=== PATIENT | male | born 1940 | race Caucasian/White ===

== ENCOUNTER → 2018-10-14 | Outpatient (REF) | payer MEDICARE | LOC: M LAB REF 19:13 | PROVIDERS: ATTEND Physician Assistant | DX: J02.9 Acute pharyngitis, unspecified (principal) ==

== ENCOUNTER → 2019-10-27 | Outpatient (CLI) | payer MEDICARE ==
[~2019-10-27] MED LIST: ACET1TAB55 PO; BAYE325T13 PO; CRES10TA PO; FERR325T18 PO; NAPR-885 PO; PRED20TA PO; TIMO0.5S39 OU; VITAD1000T PO; VITATAB74 PO; XALA0.007 OU
--- NOTE | 2019-10-27 16:41 | REP ---
Clinical: Right shoulder pain. Technique: Internal rotation, external rotation, and Y view of the right shoulder. Findings: Age-related degenerative changes include cortical irregularity and subtle spurring at the acromioclavicular joint as well as cortical irregularity and blunting of the glenoid rim. No acute fracture or dislocation. Subacromial space is normal. No periarticular loose bodies identified. Surrounding soft tissues normal. Impression: Age-related arthritic degenerative changes. Electronically Signed by Nicolas Wynne MD 10/27/2019 04:32 P
--- NOTE | 2019-10-27 16:44 | REP ---
Clinical: Contusion. Technique: Frontal view of the chest with four views of the right hemithorax. Findings: Nondisplaced fractures along the lateral margin of the right 8th - 11th ribs with small right pleural effusion and right basilar atelectasis. No definite pneumothorax identified. Impression: Acute nondisplaced fractures involving the lateral margin of the right 8th - 11th ribs Electronically Signed by Nicolas Wynne MD 10/27/2019 04:35 P
== END ==
LOC: M ADAMS 15:21
PROVIDERS: ATTEND Nurse Practitioner Family
DX: S22.41XA Multiple fractures of ribs, right side, initial encounter for closed fracture (principal); M25.511 Pain in right shoulder; Y92.9 Unspecified place or not applicable; Y93.9 Activity, unspecified; Y99.9 Unspecified external cause status

== ENCOUNTER 2019-10-29 10:48 | Inpatient (IN) | payer MEDICARE ==
[~2019-10-29] VITALS: Ht 180.3 cm; Wt 88.7 kg
[2019-10-29] VITALS (15 sets, daily range): BP systolic 114–145; BP diastolic 69–83
[2019-10-29] MEDS ORDERED: CRES10TA PO (10:56)
[2019-10-29] MEDS ORDERED: VITATAB74 PO (10:56)
[2019-10-29 13:08] LABS: ALBUMIN 3.3 GM/DL (3.2-5.2); ALT/SGPT 17 U/L (12-78); BILIRUBIN,DIRECT 0.2 MG/DL (0.0-0.2); BILIRUBIN,TOTAL 0.7 MG/DL (0.2-1.0); BLOOD UREA NITROGEN 31 MG/DL (7-18); CALCIUM LEVEL 8.9 MG/DL (8.8-10.2); CARBON DIOXIDE LEVEL 27 MEQ/L (21-32); CHLORIDE LEVEL 109 MEQ/L (98-107); CK-MB VALUE MASS < 1.0 NG/ML (<3.6); CPK CREATINE PHOSPHOKINASE 285 U/L (39-308); CREATININE FOR GFR 1.09 MG/DL (0.70-1.30); FREE T4 1.01 NG/DL (0.76-1.46); GLOMERULAR FILTRATION RATE > 60.0 (>42); GLUCOSE, FASTING 117 MG/DL (70-100); LIPASE 73 U/L (73-393); MB/CK RELATIVE INDEX 0.35 (< OR =4); POTASSIUM SERUM 4.1 MEQ/L (3.5-5.1); SODIUM LEVEL 140 MEQ/L (136-145); THYROID STIMULATING HORMONE 0.698 uIU/ML (0.358-3.740); TOTAL PROTEIN 6.6 GM/DL (6.4-8.2); TROPONIN I < 0.02 NG/ML (< 0.10)
[2019-10-29] MEDS ORDERED: ISOVUE-370 76% 100ML VIAL As Ordered ONE (13:17)
[2019-10-29 13:40] LABS: BASO % 0.3 % (0.0-1.0); EOS % 0.2 % (0.0-3.0); HEMATOCRIT 36.2 % (42.0-52.0); HEMOGLOBIN 12.1 g/dl (13.5-17.5); LYMPH # 1.2 10^3/uL (1.5-5.0); LYMPH % 9.4 % (24.0-44.0); MEAN CORPUSCULAR HEMOGLOBIN 32.4 pg (27.0-33.0); MEAN CORPUSCULAR HGB CONC 33.4 g/dl (32.0-36.5); MEAN CORPUSCULAR VOLUME 97.1 fl (80.0-96.0); MONO # 1.5 10^3/uL (0.0-0.8); MONO % 11.7 % (0.0-5.0); NEUTROPHILS # 10.1 10^3/uL (1.5-8.5); NEUTROPHILS % 77.6 % (36.0-66.0); PLATELET COUNT, AUTOMATED 202 10^3/uL (150-450); RED BLOOD COUNT 3.73 10^6/uL (4.30-6.10); WHITE BLOOD COUNT 13.1 10^3/uL (4.0-10.0)
--- NOTE | 2019-10-29 13:50 | REP ---
Clinical: Trauma. Fall. . Comparison: None . Findings: The ventricles, sulci, and cisterns are normal in position and appearance. Aparicio-white differentiation is maintained. No acute intracranial hemorrhage, mass/mass effect, pathology or trauma/injury. No evidence for acute infarction. No extra-axial fluid collection. Calvarium is intact. Paranasal sinuses and mastoid air cells are clear. Impression: Normal noncontrast head CT. No evidence for acute intracranial pathology or trauma/injury. Electronically Signed by Nicolas Wynne MD 10/29/2019 01:42 P
--- NOTE | 2019-10-29 13:57 | REP ---
Clinical: Trauma. Technique: Axial contrast enhanced images from the lung bases to the pubic symphysis using 100 ml Isovue 370 intravenous contrast material with coronal and sagittal re-formations. Findings: Right hemopneumothorax and right 8th - 11th rib fractures noted with small amount of adjacent subcutaneous emphysema. There is no evidence for solid organ injury. Hepatic and bilateral renal cysts are identified. The spleen, pancreas, gallbladder, and bilateral adrenal glands are normal. The enteric system is without obstruction or acute inflammatory process. Pelvis demonstrates normal bladder and age-appropriate prostate/seminal vesicles. No ascites. No free air. No adenopathy. Atherosclerotic changes to the aorta and vasculature noted without aneurysm or dissection. The visualized thoracolumbar spine and pelvis demonstrates age-related osteopenia and degenerative changes without acute injury. Impression: 1. Right rib fractures with right hemothorax. 2. Benign hepatic and bilateral renal cysts. 3. No abdominal pelvic trauma/injury appreciated. Electronically Signed by Nicolas Wynne MD 10/29/2019 01:49 P
--- NOTE | 2019-10-29 13:58 | REP ---
Clinical: Trauma. Technique: Axial contrast enhanced images from the thoracic inlet to the upper abdomen with coronal and sagittal re-formations. Examination followed by CT of the abdomen and pelvis. 100 ml Isovue 370 intravenous contrast material administered without complication. Findings: Posterolateral right 8th - 11th rib fractures are identified with a large hemothorax and associated right lower lobe atelectasis. Subcutaneous emphysema lateral to the rib fractures also appreciated. Mild left basilar atelectasis noted as well. Mediastinum demonstrates relatively normal thoracic aorta, pulmonary vasculature, and heart/pericardium without evidence for mediastinal injury. Impression: 1. Right posterolateral 8th - 11th rib fractures with a large right hemothorax. Electronically Signed by Nicolas Wynne MD 10/29/2019 01:50 P
--- NOTE | 2019-10-29 14:03 | REP ---
CT study of the cervical spine without contrast: History: Injury in a fall. Technique: Helical scanning is acquired and overlapping 2 mm high resolution axial images were generated and reviewed at bone and soft tissue window settings. Coronal and sagittal multiplanar re-formations images are generated. CT findings: There is straightening and slight reversal of the normal cervical lordosis. Degenerative disc changes are noted throughout the cervical spine mild in degree. There is osteoarthritic facet hypertrophy in the mid cervical spine. There is a broad-based central disc protrusion with associated discogenic spurring at C4-5 producing mild central canal stenosis. There is also posterior osteophytic ridging producing central canal stenosis moderate in degree at C5-6. There is evidence of a significant right sided pleural effusion on accompanying gis mapping technician view and on axial CT images opacifying the right lung apex. There is no evidence of cervical spine element fracture. No skull base fracture is seen. Cervical vertebral body heights are preserved. Alignment is normal. Facet joints are normally aligned bilaterally at each cervical level on multiplanar re-formations images. There is no evidence of intraspinal or paraspinal hematoma. No extra vertebral abnormality is seen. Impression: Degenerative disc disease and disc bulging and spurring producing central canal stenosis at C5-6 and C4-5. Osteoarthritic facet changes. There is evidence of significant right pleural effusion in the right lung apex. Otherwise negative CT study of the cervical spine without contrast. No fracture seen. Electronically Signed by Simone Davis MD 10/29/2019 01:54 P
[2019-10-29] MEDS ORDERED: XALA0.007 OU (14:17)
[2019-10-29] MEDS ORDERED: NAPR-885 PO (14:17)
[2019-10-29] MEDS ORDERED: BAYE325T13 PO (14:17)
[2019-10-29] MEDS ORDERED: VITAD1000T PO (14:17)
[2019-10-29] MEDS ORDERED: PRED20TA PO (14:17)
[2019-10-29] MEDS ORDERED: TIMO0.5S39 OU (14:29)
[2019-10-29] MEDS ORDERED: ACETAMINOPHEN TAB 650MG DOSE (2X325MG) PO PRN (14:30)
[2019-10-29] MEDS ORDERED: ONDANSETRON 4MG/2ML VIAL IV PRN (14:30)
[2019-10-29] MEDS ORDERED: PERCOCET 5MG/325MG TAB PO PRN ×2 (14:30)
[2019-10-29] MEDS ORDERED: BISACODYL 10 MG SUPP PR PRN (14:30)
[2019-10-29] MEDS ORDERED: LEVALBUTEROL 1.25 MG/0.5 ML CONCENTRATE NEB NEB PRN (14:30)
[2019-10-29] MEDS ORDERED: MIDAZOLAM INJ 2MG/2ML VIAL (J2250 PER 1MG) As Ordered ONE ×2 (14:50→14:51)
[2019-10-29] MEDS ORDERED: flumazeniL 0.5 MG/5 ML VIAL As Ordered ONE (14:50)
[2019-10-29] MEDS ORDERED: LIDOCAINE 1% MDV 20ML VIAL As Ordered ONE ×2 (14:51→14:53)
[2019-10-29] MEDS ORDERED: LIDOCAINE 1% MDV 20ML VIAL SC ONE (15:00)
[2019-10-29] MEDS: KCL 20MEQ IN D5/NS 1000ML 1,000 ML IV SCH (15:00)
[2019-10-29 15:32] LABS: INR 1.17; PARTIAL THROMBOPLASTIN TIME 24.4 SECONDS (25.0-38.4); PROTHROMBIN TIME 14.6 SECONDS (11.8-14.0)
[2019-10-29] MEDS ORDERED: MIDAZOLAM INJ 2MG/2ML VIAL (J2250 PER 1MG) IV STA ×3 (15:40→15:50)
--- NOTE | 2019-10-29 16:24 | HPEPDOC ---
[facility] Medical History & Physical Date of Admission Oct 29, 2019 Date of Service: Oct 29, 2019 History and Physical CHIEF COMPLAINT: Persistent thoracic back pain HISTORY OF PRESENT ILLNESS: Mr. Adler presents to the [facility] ER with the chief complaints to back and pleuritic chest pain, weakness, sweating, exertional SOB, and lightheadedness following a fall accident that occurred on Sunday (10/24). Per Mr. Adler, he was moving heavy furniture at home when we slipped and fell down a flight of stairs in his home. He immediately felt sharp lower back/flank pain and went to a urgent care facility in [place], [place] the next day (10/25) where he was given Naproxen for pain. On 10/26 he returned to the urgent care due to persistence of his back pain as well as new onset dull R shoulder pain and received a CXR revealing multiple fractured right ribs. This morning he awoke with exacerbated symptoms such as heavy sweating, chills, SOB upon exertion, generalized body weakness, upper abdominal and mid sternal chest pain upon deep breathing, and whole body tremors which prompted him to return to the urgent care where another xray was taken and he was told to come to the ER. He denies hitting his head or losing consciousness in the initial fall. He denies significant SOB, regular cough or sputum production, palpitations, current shoulder pain or weakness. PAST MEDICAL HISTORY: 1.Hypercholesterolemia 2.Recurrent kidney stones 3. Glaucoma PAST SURGICAL HISTORY: 1. Lithotripsy- multiple 2. colonoscopy SOCIAL HISTORY: Marital status: Resides in: [place], [place] for [address] 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 No medical issues. Mother: multiple strokes. Siblings: 2 sisters, hx of HTN and uterine cancer in one. 1 brother - hyperglycemia ALLERGIES: Please see below. Aspirin causes tinnitus as higher doses. REVIEW OF SYSTEMS: CONSTITUTIONAL: Denies significant fatigue, sweating, chills, weakness or poor appetite currently HEENT: Positive for dry, scratchy throat. CARDIOVASCULAR: Denies pain of cardiac profile, palpitations, irregular heart beats RESPIRATORY: Positive for sporadic cough (very painful). Denies current SOB, sputum production, current pleuritic chest pain (following chest tube) GASTROINTESTINAL: Constipation for the last few days that resolved this morning with watery stools. Denies current abdominal pain, bloating, loss of appetite, color change in stools. GENITOURINARY: Negative for anuria, polyuria, change in urine color, dysuria MUSCULOSKELETAL: Denies current muscle weakness, spasticity, or myalgias HOME MEDICATIONS: Please see below. PHYSICAL EXAMINATION: VITAL SIGNS: Temperature 97.8, pulse 70, respiratory rate 18, blood pressure 124/76, pulse oximetry 99% on room air. GENERAL APPEARANCE: Well nourished male laying in bed eating with chest tube in place in no apparent distress. HEENT: Good dentition, no lymphadenopathy, normal conjuntiva, no facial bruising or lesions,EOMI CARDIOVASCULAR: RRR with no murmurs, rubs, gallops LUNGS: Diminished breath sounds throughout R lung but no pronounced rales, rhonchi, or wheezing. Left lung sounds are clear to auscultation ABDOMEN: Mild URQ and ULQ tenderness. Abdomen appears somewhat distended. No appreciable fluid wave or guarding. Bruise noted on URQ of abdomen/flank MUSCULOSKELETAL: 5/5 strength in UE and LE abduction, flexion, extension EXTREMITIES: Bruise on distal medial left leg. No edema noted NEUROLOGICAL: No FND noted. CN II-XII grossly intact PSYCHIATRIC: Appropriate affect SKIN: Bruise to right lower flank and left inner ankle LABORATORY DATA: See below. IMAGING: CXR (10/29/2019): Small right hydropneumothorax persists post chest tube placement. Displaced right posterolateral 9th rib fracture. Abdomen/pelvis CT (10/29/2019): Right rib fractures with right hemothorax. Benign hepatic and bilateral renal cysts. No abdominal pelvic trauma/injury appreciated Cervical Spine CT (10/29/2019): Degenerative disc disease and disc bulging and spurring producing central canal stenosis at C5-6 and C4-5. Osteoarthritic facet changes. There is evidence of significant right pleural effusion in the right lung apex. Otherwise negative CT study of the cervical spine without contrast. No fracture seen. Chest CT (10/29/2019): Right posterolateral 8th - 11th rib fractures with a large right hemothorax. Head CT (10/29/2019): Normal noncontrast head CT. No evidence for acute intracranial pathology or trauma/injury. MICROBIOLOGY: Please see below. ASSESSMENT: This is a 79 year old male with no significant contributory pmhx who presents to the [facility] ER with back/thoracic pain and pleuritic chest pain secondary to a fall which occurred on 10/25/2019 and who was found to have multiple right lower rib fractures from 8th to 11th with a large right sided effusion on initial imaging which was felt to be a hemothorax. PLAN: #Right sided hemothorax - resolving -Thoracostomy tube placed with 1.5L of grossly red fluid drained -Pleural fluid was sent for cytology, cultures and general analysis -Serial CXR ordered -ABG ordered -Pain is well controlled with Acetaminophen, ketorolac, and Percocet PRN #Right ribs 8-11 fractured: -No flail segments noted -Pain well controlled at this point -U/A ordered to ensure no kidney contusion/injury #Leukocytosis with Neutrophil dominance: -No current indication of infection -Possibly due to beginning infection of hemothorax or recent GI upset -Serial CBC w/ diff -Serial BMP #Normocytic anemia: -Hbg 13.1 and will likely decrease he is rehydrated -Serial CBC w/ diff -Will continue to monitor #Hx of HLD: -Continue Rosuvastatin calcium 1- Q2D PO #DVT Prophylaxis: -Heparin 5000 units SC Q12H #Hx of seasonal allergies: -Pt reports using albuterol in the past for seasonal wheezing/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 but denies current/recent symptoms -Start Levalbuterol inhaler Vital Signs Vital Signs Date Time Temp Pulse Resp B/P (MAP) Pulse Ox O2 Delivery O2 Flow Rate FiO2 10/29/19 15:15 69 94 10/29/19 15:01 145/80 (101) 10/29/19 14:45 20 Room Air 10/29/19 14:45 96.5 Laboratory Data Labs 24H Laboratory Tests 2 10/29/19 12:07: Immature Granulocyte % (Auto) 0.8, Neutrophils (%) (Auto) 77.6H, Lymphocytes (%) (Auto) 9.4L, Monocytes (%) (Auto) 11.7H, Eosinophils (%) (Auto) 0.2, Basophils (%) (Auto) 0.3, Neutrophils # (Auto) 10.1H, Lymphocytes # (Auto) 1.2L, Monocytes # (Auto) 1.5H, Eosinophils # (Auto) 0.0, Basophils # (Auto) 0.0, Nucleated Red Blood Cells % (auto) 0.0, Prothrombin Time 14.6H, Prothromb Time International Ratio 1.17, Activated Partial Thromboplast Time 24.4L, Anion Gap 4L, Glomerular Filtration Rate > 60.0, Calcium Level 8.9, Total Bilirubin 0.7, Direct Bilirubin 0.2, Aspartate Amino Transf (AST/SGOT) 15, Alanine Aminotransferase (ALT/SGPT) 17, Alkaline Phosphatase 51, Total Creatine Kinase 285, Creatine Kinase MB < 1.0, Creatine Kinase MB Relative Index 0.35, Troponin I < 0.02, Total Protein 6.6, Albumin 3.3, Albumin/Globulin Ratio 1.0, Lipase 73, Thyroid Stimulating Hormone (TSH) 0.698, Free Thyroxine 1.01 CBC/BMP Laboratory Tests 10/29/19 12:07 Microbiology Microbiology 10/29/19 Respiratory Virus Panel (PCR) ([facility]) - Final, Complete Home Medications Scheduled Aspirin (Aspirin) 325 Mg Tablet, 162.5 MG PO DAILY Cholecalciferol (Vitamin D3) (Vitamin D3) 1,000 Unit Tablet, 2,000 UNITS PO DAILY Latanoprost (Xalatan) 0.005% 2.5ML Drops, 1 DROP OU QHS Prednisone (Prednisone) 20 Mg Tablet, 20 MG PO BID FOR 4 DAYS, STARTED 10/27/19 Rosuvastatin Calcium (Crestor) 10 Mg Tablet, 10 MG PO Q2D Timolol Maleate (Timolol Maleate) 0.5% 5ML Drop.daily, 1 DROP OU BID LAST FILLED 10/2018, PT STATES IS TAKING Scheduled PRN Naproxen (Naproxen) 500 Mg Tablet, 500 MG PO BID PRN for PAIN Allergies Coded Allergies: No Known Drug Allergies (Verified Allergy, Unknown, 10/30/19) oxycodone (Verified Adverse Reaction, Intermediate, 10/30/19) Patient states he became very diaphoretic and felt unwell A-FIB/CHADSVASC A-FIB History Current/History of A-Fib/PAF?: No Current PO Anticoag Therapy: No GME ATTESTATION GME ATTESTATION My faculty preceptor for this patient encounter was physically present during the encounter and was fully available. All aspects of the patient interview, examination, medical decision making process, and medical care plan development were reviewed and approved by the faculty preceptor. The faculty preceptor is aware and concurs with the plan as stated in the body of this note and will attest to such by his/her cosignature. ATTENDING NOTE I personally performed a history and physical examination of the patient and discussed the management with the resident/medical student. I reviewed the resident's note and agree with the documented findings and plan of care. SHEYLA HERNANDEZ OMS-3 Oct 29, 2019 16:24 WILL NOGUEIRA MD Oct 31, 2019 14:31
--- NOTE | 2019-10-29 16:32 | REP ---
Chest x-ray: Portable single view. History: Hemothorax. Comparison chest x-ray 12/1952 a.m. on this date. Findings: Right sided chest tube is seen in place. There is blunting of the right lateral pleural angle indicating small residual hemothorax. There is a small right apical pneumothorax. There is a displaced right posterolateral 9th rib fracture. The aorta somewhat tortuous. Left lung is clear. Monitoring electrodes and oxygen delivery tubing are seen. Impression: Small right hydropneumothorax persists post chest tube placement. Displaced right posterolateral 9th rib fracture. Electronically Signed by Simone aDvis MD 10/29/2019 04:24 P
[2019-10-29 16:49] LABS: ABG BASE EXCESS -1.7 (-2.0-2.0); ABG HCO3 21.9 MEQ/L (22.0-26.0); ABG O2 SATURATION 96.9 % (95.0-99.0); ABG PARTIAL PRESSURE O2 87.9 mmHg (75.0-100.0); ABG STANDARD HCO3 23.1 MEQ/L (22.0-26.0); ABG TOTAL CO2 22.9 MEQ/L (23.0-31.0); ABG pH (ARTERIAL) 7.439 UNITS (7.350-7.450)
[2019-10-29] MEDS: KETOROLAC 30 MG/ML 1ML VIAL IV SCH ×2 (16:52→20:40)
[2019-10-29 17:29] LABS: PH BODY FLUID 7.436 UNITS (NOT ESTABLISHED); SOURCE, BODY FLUID pH PLEURAL
[2019-10-29 17:33] LABS: APPEARANCE, BODY FLUID TURBID (CLEAR); PLEURAL FL COLOR RED (COLORLESS); SOURCE, BODY FLUID PLEURAL
--- NOTE | 2019-10-29 17:46 | CR ---
DATE OF CONSULTATION: 10/29/2019 Patient is seen at the request of Dr. Mei and the hospitalist's service for a pleural effusion with multiple rib fractures. HISTORY OF PRESENT ILLNESS: This past Sunday, three days prior to admission, patient was moving a 10-drawer dresser, when he fell down a flight of stairs of approximately 10 stairs, hitting his right side. He immediately felt pain but did not complain of shortness of breath. He carried on throughout the afternoon and evening and finally sought medical attention at an urgent care. Urgent care at that point did not take an x-ray and treated him with naproxen. He then returned to urgent care the next day because of more pain, and he was then put on prednisone, and a chest x-ray was taken which showed multiple fractured ribs. Today, he comes to the hospital complaining of more and more pain with increasing shortness of breath, and he was found to have a large pleural effusion. He does not complain of cough or sputum production. It surprised me it does hurt him to cough, and he can take deep breaths without an undue amount of pain. He has not had any fever but does complain of chills or sweats over the last 24 hours. He has had some constipation followed by diarrhea last night. There is no dysphagia. He is able to speak in full sentences. PAST MEDICAL ILLNESSES: Hyperlipidemia. Glaucoma. PAST SURGERIES: He has had multiple kidney stone surgeries. ALLERGIES: None. MEDICATIONS AT HOME: - aspirin 325 mg daily - vitamin D3 1000 units daily - Xalatan one drop nightly both eyes - naproxen 500 mg twice a day - prednisone 20 mg twice a day, started 10/27/2019 - Crestor 10 mg every other day - timolol one drop both eyes twice a day EXPOSURES: He has two dogs. No cats or birds. Dogs are Rat Terriers. No exposure to tuberculosis. TRAVEL HISTORY: He sojourns in [place] over the winter and is fixing up his cottage this summer. He has remote travel to the [facility]. No foreign travel. 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 He has been exposed to molds and dust pulling wires. No convincing asbestos exposure. FAMILY HISTORY: Not pertinent to the acute situation. REVIEW OF SYSTEMS: CONSTITUTIONAL: See history of present illness (HPI). EYES: Without diplopia, amaurosis fugax, or prior jaundice. NOSE: Without epistaxis. MOUTH: Has his own teeth. RESPIRATORY: See HPI. CARDIAC: Without prior myocardial infarction, intermittent claudication, peripheral edema, or tachycardia or palpitations. GASTROINTESTINAL (GI): See HPI. Without nausea or vomiting. Has had constipation and diarrhea in the last two days. No hematochezia, hematemesis, or abdominal pain. GENITOURINARY (): Multiple renal stones. Presently without dysuria or hematuria. ENDOCRINE: Without diabetes. Without thyroid disease. NEUROLOGIC: Without paresthesias, paralyses, or prior seizures. PSYCHIATRIC: Without pathological anxieties, depressions, or psychoses. PHYSICAL EXAM: Well-developed, well-nourished white male in no acute distress. Vital signs: Temperature is 98.9, heart rate is 80 in a sinus rhythm, respiratory rate of 20 without use of accessory muscles, who is 95% saturated on room air. His blood pressure is 145/80. EYES: Pupils equal and reactive to light. Extraocular motion intact. Sclerae nonicteric. NOSE: Without deformity. MOUTH: Shows his mucous membranes to be pink and moist. Lips and commissures without lesions. He has his own teeth in good repair. Head is normocephalic. NECK: Is supple. There is no jugular venous distention. No subcutaneous emphysema. Trachea is midline. He has 2+ carotid upstrokes. No bruits. There is no thyromegaly or lymphadenopathy. LUNGS: Show markedly decreased breath sounds on the right side with a dull percussion note all the way to the apex of the right chest. He has E to A egophony. He has normal vesicular sounds on the left. CARDIAC: Exam is without murmurs, clicks, gallops, or rubs. I cannot feel his point of maximum impulse (PMI). S1 and S2 are normal. ABDOMEN: Is soft, nontender. Bowel sounds are positive. There is no hepatomegaly. No costovertebral angle (CVA) tenderness. EXTREMITIES: Show no pretibial edema. No calf tenderness. No differential swelling of the upper extremities. He has a little ecchymosis just above the left ankle. SKIN: Is warm, dry, perfused without cyanosis or mottling including that of the nail beds and knees. NEUROLOGIC: Shows II-XII intact along with gross motor and gross sensation intact. Gait is not tested. PSYCHIATRIC: Shows him to be awake, alert, and oriented times three with appropriate mood and affect and conversational. His white count is 13.8 with a hemoglobin and hematocrit of 12.1 and 36.2 and a platelet count of 202. Differential shows 77% neutrophils, 9% lymphocytes, 11% monocytes. There are no immature forms. No toxic granulations. Chemistries show essentially normal electrolytes with BUN and creatinine of 31 and 1.09 with a glucose of 117 with a calcium 8.9, corresponding albumin of 3.3. AST and ALT are normal. Urinalysis is not done. PT/INR are 14.6 and 1.17, respectively, with a PTT of [address] scan shows the heterogeneous pleural effusion occupying almost all the hemithorax. There is aeration of the right upper lobe. He has rib fractures displaced of 10 and 9 ribs posteriorly. IMPRESSION: 1. Multiple rib fractures, ribs 9 and 10, without a flail segment. 2. Probable hemothorax. 3. Hyperlipidemia. 4. Glaucoma. PLAN AND DISCUSSION: I will immediately place a chest tube. He has a heterogeneous pleural effusion which is no doubt blood, some of which is probably clotted. Even though his blood pressure and heart rate are stable and he is not on beta blockers, I suspect he is going to drop his hemoglobin once this hemithorax is resolved and he is rehydrated. I will obtain a urinalysis to make sure he does not have a renal contusion.
[2019-10-29 17:56] LABS: AMYLASE, BODY FLUID 40 U/L (NOT ESTABLISHED); CHOLESTEROL, BODY FLUID 112 MG/DL (NOT ESTABLISHED); LDH, BODY FLUID 337 U/L (NOT ESTABLISHED); SOURCE, BODY FLUID ALBUMIN PLEURAL; SOURCE, BODY FLUID AMYLASE PLEURAL; SOURCE, BODY FLUID CHOL PLEURAL; SOURCE, BODY FLUID GLUCOSE PLEURAL; SOURCE, BODY FLUID LDH PLEURAL; SOURCE, BODY FLUID TOT PROTEIN PLEURAL; SOURCE, BODY FLUID TRIG PLEURAL; TOTAL PROTEIN, BODY FLUID 5.3 G/DL (NOT ESTABLISHED); TRIGLYCERIDE, BODY FLUID 63 MG/DL (NOT ESTABLISHED)
[2019-10-29] MEDS: LEVALBUTEROL 1.25 MG/0.5 ML CONCENTRATE NEB NEB SCH (19:49)
[2019-10-29] MEDS: DOCUSATE SODIUM 100 MG CAP PO SCH (20:28)
[2019-10-29] MEDS: LATANOPROST 0.005% OPHTH SOLN 2.5 ML OU SCH (20:39)
[2019-10-29] MEDS: HEPARIN SOD (PORCINE) 5000UNITS/ML VIAL (J1644 PER 1000UNITS) SC SCH (20:40)
[2019-10-30] VITALS (7 sets, daily range): BP systolic 120–148; BP diastolic 63–76
[2019-10-30] MEDS: KCL 20MEQ IN D5/NS 1000ML 1,000 ML IV SCH ×3 (01:31→22:14)
[2019-10-30] MEDS: LEVALBUTEROL 1.25 MG/0.5 ML CONCENTRATE NEB NEB SCH ×4 (01:58→20:00)
[2019-10-30 02:09] LABS: APPEARANCE, URINE CLEAR (CLEAR); BACTERIA, URINE AUTO NEGATIVE (NEGATIVE); BILIRUBIN, URINE AUTO NEGATIVE (NEGATIVE); BLOOD, URINE BLOOD NEGATIVE (NEGATIVE); COLOR, URINE YELLOW (YELLOW); GLUCOSE, URINE (UA) AUTO NEGATIVE (NEGATIVE); KETONE, URINE AUTO NEGATIVE (NEGATIVE); LEUKOCYTE ESTERASE, URINE AUTO NEGATIVE (NEGATIVE); MUCUS, URINE LARGE (NEGATIVE); NITRITE, URINE AUTO NEGATIVE (NEGATIVE); PROTEIN, URINE AUTO NEGATIVE (NEGATIVE); RBC, URINE AUTO 3 /HPF (0-3); SQUAMOUS EPITHELIAL CELL UR AU 0 /HPF (0-6); UROBILINOGEN, URINE AUTO 0.2 mg/dL (0.0-2.0); WBC, URINE AUTO 2 /HPF (0-3)
[2019-10-30 02:35] LABS: SPECIFIC GRAVITY URINE AUTO >1.060 (1.002-1.035)
[2019-10-30] MEDS: KETOROLAC 30 MG/ML 1ML VIAL IV SCH ×4 (03:43→20:04)
[2019-10-30 05:37] LABS: ABG BASE EXCESS -1.3 (-2.0-2.0); ABG HCO3 22.8 MEQ/L (22.0-26.0); ABG O2 SATURATION 96.8 % (95.0-99.0); ABG PARTIAL PRESSURE CO2 35.4 mmHg (35.0-45.0); ABG PARTIAL PRESSURE O2 88.4 mmHg (75.0-100.0); ABG STANDARD HCO3 23.4 MEQ/L (22.0-26.0); ABG TOTAL CO2 23.8 MEQ/L (23.0-31.0); ABG pH (ARTERIAL) 7.426 UNITS (7.350-7.450)
[2019-10-30 05:39] LABS: BLOOD UREA NITROGEN 36 MG/DL (7-18); CALCIUM LEVEL 7.7 MG/DL (8.8-10.2); CARBON DIOXIDE LEVEL 28 MEQ/L (21-32); CHLORIDE LEVEL 115 MEQ/L (98-107); CREATININE FOR GFR 1.05 MG/DL (0.70-1.30); GLOMERULAR FILTRATION RATE > 60.0 (>42); GLUCOSE, FASTING 153 MG/DL (70-100); POTASSIUM SERUM 4.3 MEQ/L (3.5-5.1); SODIUM LEVEL 146 MEQ/L (136-145)
--- NOTE | 2019-10-30 06:17 | ECGEPIP ---
[facility] - ED Test Date: 2019-10-29 Pat Name: KEIKO DEGROOT Department: Room: - Gender: Male Collection Agent: OLYA : [id number] Requested By: ABEL Mcnair Order Number: [id number] Reading MD: Carlos Laguna Measurements Intervals [place] Rate: 77 P: 43 TN: 164 QRS: 27 QRSD: 91 T: 27 QT: 355 QTc: 402 Interpretive Statements SINUS RHYTHM INCOMPLETE RIGHT BUNDLE BRANCH BLOCK NO PRIORS FOR COMPARISON Electronically Signed on 10-30-2019 6:17:09 EDT by Carlos Laguna
[2019-10-30 06:56] LABS: BASO % 0.3 % (0.0-1.0); EOS # 0.2 10^3/uL (0.0-0.5); EOS % 2.1 % (0.0-3.0); HEMATOCRIT 26.9 % (42.0-52.0); HEMOGLOBIN 8.9 g/dl (13.5-17.5); LYMPH % 12.7 % (24.0-44.0); MEAN CORPUSCULAR HEMOGLOBIN 32.7 pg (27.0-33.0); MEAN CORPUSCULAR HGB CONC 33.1 g/dl (32.0-36.5); MEAN CORPUSCULAR VOLUME 98.9 fl (80.0-96.0); MONO # 1.2 10^3/uL (0.0-0.8); MONO % 15.3 % (0.0-5.0); NEUTROPHILS # 5.2 10^3/uL (1.5-8.5); NEUTROPHILS % 69.2 % (36.0-66.0); PLATELET COUNT, AUTOMATED 132 10^3/uL (150-450); RED BLOOD COUNT 2.72 10^6/uL (4.30-6.10); WHITE BLOOD COUNT 7.6 10^3/uL (4.0-10.0)
--- NOTE | 2019-10-30 08:35 | REP ---
CHEST X-RAY: Two views. HISTORY: Hemothorax. COMPARISON CHEST X-RAY: October 29, 2019. FINDINGS: A right-sided chest tube remains in place. There is further improvement in the right-sided pleural effusion. There is no evidence of pneumothorax on today's chest x-ray. There is mild plate-like atelectasis in the left base. Displaced right posterior 9th and 10th rib fractures seen and a nondisplaced right 8th rib fracture is visible on this radiograph. Thoracic vertebral body heights are preserved. IMPRESSION: Improved right-sided hemothorax with chest tube in place. Right-sided rib fractures. Plate-like atelectasis left base. Electronically Signed by Simone Davis MD 10/30/2019 09:20 A
--- NOTE | 2019-10-30 10:10 | REP ---
Clinical: Hemothorax. Trauma. Technique: Axial noncontrast images from the thoracic inlet to the upper abdomen with coronal and sagittal re-formations. Comparison: 10/29/2019. Findings: Moderate residual right hemothorax noted. The tip of the chest tube extends to the right lung apex beyond the level of the hemathorax. Associated right lower lobe consolidation with air bronchograms appears slightly more prominent than prior examination. Right rib fractures, small amount of right subcutaneous emphysema, and trace left basilar atelectasis again noted and unchanged. The remainder of the bilateral lung sung are well-aerated and relatively clear. Mediastinum is stable with atherosclerotic changes to the thoracic aorta and coronary arteries again noted. No significant adenopathy. Impression: 1. Moderate residual right hemothorax decreased from prior examination. Tip of the right chest tube extends to the right lung apex beyond the level of the knee pneumothorax. 2. Moderate right lower lobe consolidation, trace left basilar atelectasis, right rib fractures and small amount of right subcutaneous emphysema again noted. Electronically Signed by Nicolas Wynne MD 10/30/2019 10:01 A
[2019-10-30] MEDS: MOM 30ML SUSPENSION UDC PO SCH (10:20)
[2019-10-30] MEDS: HEPARIN SOD (PORCINE) 5000UNITS/ML VIAL (J1644 PER 1000UNITS) SC SCH ×2 (10:21→20:03)
[2019-10-30] MEDS: PANTOPRAZOLE 40MG TAB (PROTONIX) PO SCH (10:22)
[2019-10-30] MEDS: DOCUSATE SODIUM 100 MG CAP PO SCH ×2 (10:23→20:05)
[2019-10-30] MEDS ORDERED: ALTEPLASE 2MG/2ML VIAL XX ONE (12:45)
--- NOTE | 2019-10-30 14:20 | RO ---
DATE OF PROCEDURE: 10/30/2019 PREPROCEDURE DIAGNOSIS: Loculated pleural effusion, most likely clotted blood. POSTPROCEDURE DIAGNOSIS: Loculated pleural effusion, most likely clotted blood. PROCEDURE: tPA pleurolysis. SURGEON: Dr. Israel Walls FINISHING TUNNEL OPERATOR: ANESTHESIA: DESCRIPTION OF PROCEDURE: The patient's chest tubes were disconnected and clamped. Prepped and draped in the usual sterile fashion. 6 mg of tPA and 100 mL of normal saline was infused into the chest. The chest tubes clamped. The patient was turned from side to side to distribute the tPA. The chest tubes will be unclamped in 4 hours. The patient tolerated the procedure well.
--- NOTE | 2019-10-30 14:40 | IPN ---
DATE: 10/30/2019 This is the first hospital day for Mr. Adler. He has had a stable 24 hours and his pain is being fairly well controlled with both Toradol and oral analgesics His vital signs show a maximum temperature (Tmax) of 98.2 with a heart rate that ranges between 81-78 in a sinus rhythm, respiratory rate of 18-20 without the use of accessory muscles, who is 97% saturated on 2 liters nasal cannula and his blood pressure is ranging between 145/72-115/69. His intake and output for the past 24 hours has been recorded as 1000 in and 1640 out for negativity of 640 mL. He has put out 1590 mL from the chest tube yesterday and 105 mL in the last 12 hours. His weight today is 89.4 kg compared to 89.3 kg yesterday. On physical examination, he has coarse rhonchi particularly the right side. Percussion note is full to the diaphragm. Cardiac exam is without murmurs, clicks, gallops, or rubs. I cannot feel his point of maximal impulse (PMI). S1 and S2 are normal. Abdomen is tympanitic and slightly distended. There is no hepatomegaly, no costovertebral angle tenderness. Extremities show no pretibial edema and no calf tenderness. No differential swelling of the upper extremities. Skin is warm, dry, and perfused without cyanosis or mottling, including that of the nail beds and the knees. Neck is supple. There is no jugular venous distention. No subcutaneous emphysema. Trachea is midline. Mouth shows his mucous membranes to be pink and moist. Lips and commissures are without lesions. There is no thrush. Eyes show his pupils to be equal and reactive. Extraocular motions are intact. Sclerae are nonicteric. Neurologic shows II-XII intact along with gross motor and gross sensation intact. Gait is not tested. Psychiatric exam shows him to be awake and alert, oriented times three with appropriate mood and affect, and conversational. His white count today is 7.6, down from 13.1 yesterday. Hemoglobin and hematocrit is 8.9 and 26.9, markedly decreased from 12.1 and 36.2. This was expected secondary to hemodilution and blood loss from his hemothorax. Platelet count is 132 and differential shows 69% neutrophils, 12% lymphocytes, 15% monocytes. There are no immature forms, no toxic granulations. His electrolytes show a marginally high sodium of 146 with a potassium of 4.3. BUN and creatinine are 36 and 1.05, changed from 31 and 1.09 yesterday. Calcium is 7.7 with a glucose of 153. His pleural fluid has come back with a pH of 7.4 with a glucose of 82 and LDH of 337 with a serum LDH of 191. There are 5700 white cells and 2500 red cells. Differential shows 25% mononuclear, 75% neutrophils which closely resembles that of his serum. This looks to be hemorrhagic pleural effusion. Microbiology does not show any organisms and cultures are pending. Pathology is still pending. His chest x-ray today shows some residual opacity in the right lower hemithorax. It also shows the stable opacity in the lateral film looking like a pleural effusion. I therefore obtained a CT scan of his chest. It shows compression atelectasis along with the residual heterogenous fluid consistent with clotted blood. He has multiple liver cysts. IMPRESSION: 1. Multiple rib fractures. 2. Hemothorax. 3. Hyperlipidemia. 4. Glaucoma. PLAN AND DISCUSSION: Since he still has retained fluid, which looks to be clotted blood, I will undertake a tPA pleurolysis. We doing aggressive lung expansion therapy on him. I am gratified that his pain is being fairly well controlled.
[2019-10-30] MEDS: NORCO, ANEXSIA 5/325MG TABLET (HYDROcodone/ACETAMINOPHEN) PO PRN ×2 (16:39→20:05)
--- NOTE | 2019-10-30 16:52 | IPNPDOC ---
Subjective Date Seen The patient was seen on 10/30/19. Subjective Chief Complaint/HPI The patient is sitting upright in the bed when I came to see and evaluate him. He reports that he is feeling fairly well, all things considered. He does continue to have referred pain to the right shoulder, and of course he does have some tenderness at the site of the chest tube insertion, but otherwise reports that his pain is fairly well-controlled at this time. He has not developed any significant shortness of breath, cough. He is tolerating his meals at this time. Constitutional: Denies: Chills, Fever, Night Sweats Pulmonary: Denies: Dyspnea, Cough Gastrointestinal: Denies: Nausea, Vomiting, Abdominal Pain, Diarrhea, Constipation Hematologic: Denies: Bleeding Excessively Psych: Reports: Mood Normal; Denies: Depression, Memory Issues Objective Physical Examination General Exam: Positive: Alert, No Acute Distress Neck Exam: Positive: Supple; Negative: JVD Chest Exam: Positive: Other (lungs sounds are diminished at the right base, and then he developed some crackles approximately midway up the thorax, and then sounds clear to auscultation at the apex. On the left side, he does have some very mild diffuse crackles present at the base, but it also clears at the apex as well. No rhonchi. Chest tube present in the right thorax, it is presently clamped.) Heart Exam: Positive: Rate Normal, Regular Rhythm, Normal S1, Normal S2; Negative: Murmurs, Rubs Abdomen Exam: Positive: Normal bowel sounds, Soft; Negative: Tenderness, Hepatospenomegaly Extremity Exam: Positive: Normal pulses; Negative: Clubbing, Cyanosis, Edema Psych Exam: Positive: Mental status NL, Mood NL, Oriented x 3 Assessment /Plan Problems (1) Hemothorax Status: Acute (2) Fracture, ribs Status: Acute (3) Acute blood loss anemia Status: Acute (4) Leukocytosis Status: Acute Response to Treatment: Improving (5) Hyperlipidemia Status: Chronic Problem Text: Continue home dose of rosuvastatin (6) Seasonal allergies Status: Chronic (7) Hx of wheezing Status: Chronic Problem Text: Supposedly secondary to seasonal allergies, he does not have an official diagnosis for asthma Levealbuterol PRN Plan/VTE VTE Prophylaxis Ordered?: Yes (sequentials) Plan Patient did have significant drop in his hemoglobin from 12.1-8.9 today which is to be expected given his hemothorax, and having just attention to the chest tube. White count dropped from 13.1 to 7.6, and he does not have any signs or symptoms of infection, he is not currently on any antibiotics, therefore is suspected that his initial elevated white count was likely due to stress d emargination. Apparently the CT scan and the blood and the chest tube were indicative of clotted blood, cardiothoracic surgery has elected to do TPA pleurolysis. VS, I&O, 24H, Fishbone Vital Signs/I&O Vital Signs Date Time Temp Pulse Resp B/P (MAP) Pulse Ox O2 Delivery O2 Flow Rate FiO2 10/30/19 12:00 2.0 10/30/19 12:00 98.1 77 18 145/72 (96) 92 Nasal Cannula I&O- Last 24 Hours up to 6 AM 10/30/19 05:59 Intake Total 1800 ml Output Total 1675 ml Balance 125 ml Laboratory Data 24H LABS Laboratory Tests 2 10/30/19 01:53: Urine Color YELLOW, Urine Appearance CLEAR, Urine pH 5.0, Urine Specific Benson >1.060H, Urine Protein NEGATIVE, Urine Glucose (Auto)(UA) NEGATIVE, Urine Ketones (Auto) NEGATIVE, Urine Blood NEGATIVE, Urine Nitrite NEGATIVE, Urine Bilirubin NEGATIVE, Urine Urobilinogen 0.2, Urine Leukocyte Esterase (Auto) NEGA TIVE, Urine WBC (Auto) 2, Urine RBC (Auto) 3, Urine Hyaline Casts (Auto) 0, Urine Bacteria (Auto) NEGATIVE, Urine Squamous Epithelial Cells 0, Urine Mucus (Auto) LARGE, Urine Sperm (Auto) 10/30/19 04:53: Immature Granulocyte % (Auto) 0.4, Neutrophils (%) (Auto) 69.2H, Lymphocytes (%) (Auto) 12.7L, Monocytes (%) (Auto) 15.3H, Eosinophils (%) (Auto) 2.1, Basophils (%) (Auto) 0.3, Neutrophils # (Auto) 5.2, Lymphocytes # (Auto) 1.0L, Monocytes # (Auto) 1.2H, Eosinophils # (Auto) 0.2, Basophils # (Auto) 0.0, Nucleated Red Blood Cells % (auto) 0.0, Anion Gap 3L, Glomerular Filtration Rate > 60.0, Calcium Level 7.7L 10/30/19 05:26: Blood Gas Bicarbonate Standard 23.4, Arterial Blood pH 7.426, Arterial Blood Partial Pressure CO2 35.4, Arterial Blood Partial Pressure O2 88.4, Arterial Blood Total CO2 23.8, Arterial Blood HCO3 22.8, Arterial Blood Base Excess -1.3, Arterial Blood Oxygen Saturation 96.8 CBC/BMP Laboratory Tests 10/30/19 04:53 Microbiology Microbiology 10/29/19 Respiratory Virus Panel (PCR) ([facility]) - Final, Complete 10/29/19 Acid Fast Stain, Received Pending 10/29/19 Mycobacterial Culture, Received Pending 10/29/19 Fungal Smear, Received Pending 10/29/19 Fungal Culture, Received Pending 10/29/19 Gram Stain - Final, Resulted 10/29/19 Body Fluid Culture, Resulted Pending 10/29/19 Anaerobic Culture, Resulted Pending WALDEMAR SHETH DO Oct 30, 2019 16:52
[2019-10-30] MEDS: LATANOPROST 0.005% OPHTH SOLN 2.5 ML OU SCH (20:05)
[2019-10-31] VITALS (7 sets, daily range): BP systolic 116–176; BP diastolic 62–82
[2019-10-31] MEDS: NORCO, ANEXSIA 5/325MG TABLET (HYDROcodone/ACETAMINOPHEN) PO PRN (00:50)
[2019-10-31] MEDS: LEVALBUTEROL 1.25 MG/0.5 ML CONCENTRATE NEB NEB SCH ×4 (01:48→20:00)
[2019-10-31] MEDS: KETOROLAC 30 MG/ML 1ML VIAL IV SCH ×4 (03:37→20:40)
[2019-10-31 06:00] LABS: BASO % 0.4 % (0.0-1.0); EOS # 0.2 10^3/uL (0.0-0.5); EOS % 2.9 % (0.0-3.0); HEMATOCRIT 27.1 % (42.0-52.0); HEMOGLOBIN 8.9 g/dl (13.5-17.5); LYMPH % 13.2 % (24.0-44.0); MEAN CORPUSCULAR HEMOGLOBIN 32.7 pg (27.0-33.0); MEAN CORPUSCULAR HGB CONC 32.8 g/dl (32.0-36.5); MEAN CORPUSCULAR VOLUME 99.6 fl (80.0-96.0); MONO % 12.6 % (0.0-5.0); NEUTROPHILS # 5.5 10^3/uL (1.5-8.5); NEUTROPHILS % 70.1 % (36.0-66.0); PLATELET COUNT, AUTOMATED 110 10^3/uL (150-450); RED BLOOD COUNT 2.72 10^6/uL (4.30-6.10); WHITE BLOOD COUNT 7.8 10^3/uL (4.0-10.0)
[2019-10-31 06:20] LABS: BLOOD UREA NITROGEN 38 MG/DL (7-18); CALCIUM LEVEL 7.9 MG/DL (8.8-10.2); CARBON DIOXIDE LEVEL 27 MEQ/L (21-32); CHLORIDE LEVEL 113 MEQ/L (98-107); CREATININE FOR GFR 1.01 MG/DL (0.70-1.30); GLOMERULAR FILTRATION RATE > 60.0 (>42); GLUCOSE, FASTING 129 MG/DL (70-100); POTASSIUM SERUM 4.8 MEQ/L (3.5-5.1); SODIUM LEVEL 143 MEQ/L (136-145)
--- NOTE | 2019-10-31 08:43 | REP ---
Clinical: Hemothorax. Technique: PA and lateral. Comparison: 10/30/2019 Findings: Chest tube extends to the right apex. A small right apical pneumothorax is identified. Moderate pleural fluid and right lower lobe opacities suggesting atelectasis similar to prior examination. Mediastinum and cardiac silhouette along with left hemithorax appear stable and unremarkable. Right rib fractures again identified. Impression: 1. Right hemopneumothorax again noted. Electronically Signed by Nicolas Wynne MD 10/31/2019 08:36 A
[2019-10-31] MEDS: DOCUSATE SODIUM 100 MG CAP PO SCH ×2 (10:00→20:40)
[2019-10-31] MEDS: PANTOPRAZOLE 40MG TAB (PROTONIX) PO SCH (10:00)
[2019-10-31] MEDS: ROSUVASTATIN 10 MG TAB (CRESTOR) PO SCH (10:00)
[2019-10-31] MEDS: MOM 30ML SUSPENSION UDC PO SCH (10:00)
--- NOTE | 2019-10-31 13:06 | IPN ---
DATE: 10/31/2019 Mr. Adler underwent a tPA pleurolysis yesterday. Chest tube opened and very little came out. I therefore placed him in deep Trendelenburg for 15 minutes. He then had a significant result with 780 mL being drained from the chest tube. Today, his chest x-ray is much improved. Today, however, Mr. Adler states that he is feeling rather weak. He has sort of a depressed mood and affect. His pain is being fairly well controlled at the chest tube insertion site. His vital signs show a maximum temperature (Tmax) of 98.2 with a heart rate that ranges between 77-66 in a sinus rhythm, a respiratory rate of 17-18 without the use of accessory muscles, who is 90-95% saturated on 2 liters nasal cannula and whose blood pressure is ranging between 116/62 to 141/67. His intake and output for the past 24 hours has been recorded as 1680 in and 1175 out for a positivity of 500 mL. He has taken in 1080 mL in by mouth intake. He put out 780 mL overnight in addition to 225 mL all of yesterday for approximately 1000 mL from the chest tube. His weight today is 91.4 kg compared to 89.4 kg yesterday. On physical examination, he has crackles, particularly coarse crackles and rhonchi which do not all clear with coughing in the right hemithorax. Percussion note is full to the diaphragm. Cardiac exam is without murmurs, clicks, gallops, or rubs. I cannot feel his point of maximal impulse (PMI). S1 and S2 are normal. Abdomen is soft and nontender. Bowel sounds are positive. There is no hepatomegaly. No costovertebral angle tenderness. Extremities show no pretibial edema and no calf tenderness. No differential swelling of the upper extremities. Skin is warm, dry, and perfused without cyanosis or mottling, including that of the nail beds and the knees. Neck is supple. There is no jugular venous distention. No subcutaneous emphysema. Trachea is midline. Mouth shows his mucous membranes to be pink and moist. Lips and commissures are without lesions. There is no thrush. Eyes show his pupils to be equal and reactive. Extraocular motions are intact. Sclerae are nonicteric. Neurologic shows II-XII intact along with gross motor and gross sensation intact. Gait is not tested. Psychiatric exam shows him to be awake and alert, oriented times three with a depressed mood and affect. His white count today is 7.8 with a hemoglobin and hematocrit of 8.9 and 27.1, unchanged from yesterday. His platelet count is 110. Differential shows 70% neutrophils, 16% lymphocytes, 12% monocytes. There are no immature forms, no toxic granulations. His electrolytes today are essentially normal with a BUN and creatinine of 38 and 1.1. Calcium is 7.9 with a glucose of 129. There is no growth aerobically or anaerobically from the chest tube output. Pathology is still pending. His chest x-ray is markedly improved. The retained clot seen on chest x-ray and chest CT yesterday now looks to be gone. Costophrenic angles are sharp. Chest tube in good place. I see no infiltrates. IMPRESSION: 1. Multiple rib fractures. 2. Hemothorax. 3. Hyperlipidemia. 4. Glaucoma. 5. Anemia secondary to blood loss and hemodilution. PLAN AND DISCUSSION: I will discontinue his chest tube suction today. I am very gratified with the results of the tPA pleurolysis. If the chest tube output is minimal this afternoon and tomorrow, I may consider removing it. He is rather weakened and he may need acute rehabilitation. He has come up to open up his camp from [place] and he has no one staying with him.
--- NOTE | 2019-10-31 16:20 | IPNPDOC ---
Subjective Date Seen The patient was seen on 10/31/19. Subjective Chief Complaint/HPI Patient continues to do well. It appears that he had a fairly decent output from his chest tube yesterday after TPA pleurolysis. The patient reports that it was quite painful when they were draining the tube in the Trendelenburg position, but otherwise reports that he slept fairly well, and does not have much pain right now. He does not have any other concerns or complaints at this time Objective Physical Examination General Exam: Positive: Alert, Cooperative, No Acute Distress Neck Exam: Positive: Supple; Negative: JVD Chest Exam: Positive: Other (crackles at the bases, otherwise fairly clear to auscultation at the apices.) Heart Exam: Positive: Rate Normal, Regular Rhythm; Negative: Murmurs, Rubs Abdomen Exam: Positive: Normal bowel sounds, Soft; Negative: Tenderness, Hepatospenomegaly Extremity Exam: Positive: Normal pulses; Negative: Clubbing, Cyanosis, Edema Psych Exam: Positive: Mental status NL, Mood NL, Oriented x 3 Assessment /Plan Problems (1) Hemothorax Status: Acute (2) Fracture, ribs Status: Acute (3) Acute blood loss anemia Status: Acute (4) Leukocytosis Status: Acute Response to Treatment: Improving (5) Hyperlipidemia Status: Chronic Problem Text: Continue home dose of rosuvastatin (6) Seasonal allergies Status: Chronic (7) Hx of wheezing Status: Chronic Problem Text: Supposedly secondary to seasonal allergies, he does not have an official diagnosis for asthma Levealbuterol PRN Plan/VTE VTE Prophylaxis Ordered?: Yes (sequentials) Plan Today's chest x-ray shows significant improvement in hemothorax. Chest tube remains in place. Input from cardiothoracic surgery is greatly appreciated. Pain is adequately controlled, no changes in his regimen today. VS, I&O, 24H, Fishbone Vital Signs/I&O Vital Signs Date Time Temp Pulse Resp B/P (MAP) Pulse Ox O2 Delivery O2 Flow Rate FiO2 10/31/19 12:00 97.9 98 18 143/77 (99) 91 Room Air 10/31/19 07:50 2.0 I&O- Last 24 Hours up to 6 AM 10/31/19 06:00 Intake Total 780 ml Output Total 1800 ml Balance -1020 ml Laboratory Data 24H LABS Laboratory Tests 2 10/31/19 05:28: Immature Granulocyte % (Auto) 0.8, Neutrophils (%) (Auto) 70.1H, Lymphocytes (%) (Auto) 13.2L, Monocytes (%) (Auto) 12.6H, Eosinophils (%) (Auto) 2.9, Basophils (%) (Auto) 0.4, Neutrophils # (Auto) 5.5, Lymphocytes # (Auto) 1.0L, Monocytes # (Auto) 1.0H, Eosinophils # (Auto) 0.2, Basophils # (Auto) 0.0, Nucleated Red Blood Cells % (auto) 0.0, Anion Gap 3L, Glomerular Filtration Rate > 60.0, Calcium Level 7.9L CBC/BMP Laboratory Tests 10/31/19 05:28 Microbiology Microbiology 10/29/19 Respiratory Virus Panel (PCR) ([facility]) - Final, Complete 10/29/19 Acid Fast Stain, Received Pending 10/29/19 Mycobacterial Culture, Received Pending 10/29/19 Fungal Smear, Received Pending 10/29/19 Fungal Culture, Received Pending 10/29/19 Gram Stain - Final, Complete 10/29/19 Body Fluid Culture - Final, Complete 10/29/19 Anaerobic Culture - Final, Complete WALDEMAR SHETH DO Oct 31, 2019 16:20
[2019-10-31] MEDS: LATANOPROST 0.005% OPHTH SOLN 2.5 ML OU SCH (20:40)
[2019-11-01] VITALS: BP 167/81
[2019-11-01] MEDS: LEVALBUTEROL 1.25 MG/0.5 ML CONCENTRATE NEB NEB SCH ×4 (01:31→20:00)
[2019-11-01 04:00] VITALS: BP 140/73
[2019-11-01] MEDS: KETOROLAC 30 MG/ML 1ML VIAL IV SCH ×4 (04:04→21:12)
[2019-11-01 06:22] LABS: BASO % 0.2 % (0.0-1.0); EOS # 0.3 10^3/uL (0.0-0.5); EOS % 4.1 % (0.0-3.0); HEMATOCRIT 25.8 % (42.0-52.0); HEMOGLOBIN 8.4 g/dl (13.5-17.5); LYMPH % 12.3 % (24.0-44.0); MEAN CORPUSCULAR HEMOGLOBIN 31.9 pg (27.0-33.0); MEAN CORPUSCULAR HGB CONC 32.6 g/dl (32.0-36.5); MEAN CORPUSCULAR VOLUME 98.1 fl (80.0-96.0); MONO # 0.9 10^3/uL (0.0-0.8); MONO % 10.4 % (0.0-5.0); NEUTROPHILS # 5.9 10^3/uL (1.5-8.5); PLATELET COUNT, AUTOMATED 116 10^3/uL (150-450); RED BLOOD COUNT 2.63 10^6/uL (4.30-6.10); WHITE BLOOD COUNT 8.3 10^3/uL (4.0-10.0)
[2019-11-01 06:49] LABS: BLOOD UREA NITROGEN 39 MG/DL (7-18); CALCIUM LEVEL 7.8 MG/DL (8.8-10.2); CARBON DIOXIDE LEVEL 25 MEQ/L (21-32); CHLORIDE LEVEL 114 MEQ/L (98-107); CREATININE FOR GFR 0.86 MG/DL (0.70-1.30); GLOMERULAR FILTRATION RATE > 60.0 (>42); GLUCOSE, FASTING 118 MG/DL (70-100); POTASSIUM SERUM 4.3 MEQ/L (3.5-5.1); SODIUM LEVEL 142 MEQ/L (136-145)
[2019-11-01 08:00] VITALS: BP 138/66
[2019-11-01] MEDS: MOM 30ML SUSPENSION UDC PO SCH (08:09)
[2019-11-01] MEDS: PANTOPRAZOLE 40MG TAB (PROTONIX) PO SCH (08:09)
[2019-11-01] MEDS: DOCUSATE SODIUM 100 MG CAP PO SCH ×2 (08:09→21:00)
--- NOTE | 2019-11-01 08:19 | REP ---
Clinical: Followup hemothorax. Technique: PA and lateral. Comparison: 10/31/2019, 10/30/2019. Findings: Chest tube extending to the right apex is unchanged in position. Small right apical pneumothorax and right basilar pleuroparenchymal changes suggesting small residual pneumothorax and atelectasis again noted and possibly minimally improved. No new acute process appreciated. Impression: 1. Continued evidence for small right apical pneumothorax. 2. Right basilar pleuroparenchymal changes may be minimally improved. Electronically Signed by Nicolas Wynne MD 11/01/2019 08:10 A
--- NOTE | 2019-11-01 11:13 | IPN ---
DATE OF SERVICE: 11/01/2019 Mr. Adler is feeling much better today. He did not eat very much yesterday. Eating better today. His vital signs show a maximum temperature (Tmax) of 98.7 with a heart rate that ranges between 86 and 92 in a sinus rhythm, respiratory rate of 18-17 without the use of accessory muscles, who is 93% to 94% saturated on 2 liters nasal cannula, and whose blood pressure is ranging between 176/82 to 140/74. His intake and output over the past 24 hours has been recorded as 120 in and 1880 out for a negativity of 1760 mL. He has put 955 mL out of the chest tube yesterday. My suspicion is that the intake and output (I and O) are incorrect. He has put out 165 mL in the last 12 hours. His weight is pending today. On physical examination, his lungs show some rhonchi in the right lower hemithorax. Percussion note is full to the diaphragm. Cardiac examination is without murmurs, clicks, gallops, or rubs. I cannot feel his point of maximal impulse (PMI). S1 and S2 are normal. Abdomen is soft and nontender. Bowel sounds are positive. He is tympanitic and fully extended. Extremities show no pretibial edema, no calf tenderness, no differential swelling of the upper extremities. Skin is warm, dry, and perfused without cyanosis or mottling, including that of the nail beds and the knees. Neck is supple. There is no jugular venous distention. No subcutaneous emphysema. Trachea is midline. Mouth shows his mucous membranes to be pink and moist. Lips and commissures are without lesions. There is no thrush. Eyes show his pupils to be equal and reactive. Extraocular motions are intact. Sclerae anicteric. Neurologic shows II-XII intact along with gross motor and gross sensation intact. Gait is not tested. Psychiatric shows him to be awake and alert, oriented times three with appropriate mood and affect and conversational. His white count today is 8.3 with a hemoglobin and hematocrit of 8.4 and 25.8 and a platelet count of 116. Differential shows 72% neutrophils, 12% lymphocytes, 10% monocytes. There are no immature forms, no toxic granulations. His electrolytes today are essentially normal with a BUN and creatinine of 39 and 0.86, a glucose of 118, and a calcium of 7.8. His chest x-ray shows the lung fully expanded to the chest wall. The remaining pleural effusion and retained clots are gone. I see no infiltrates. IMPRESSION: 1. Multiple rib fractures. 2. Hemothorax. 3. Hyperlipidemia. 4. Glaucoma. 5. Anemia secondary to blood loss and hemodilution. PLAN AND DISCUSSION: I will remove his chest tubes today. If all goes according to plan, hopefully we can send him home tomorrow so long as he is functional. I have asked physical therapy to work with him for ambulation and strengthening.
[2019-11-01 11:40] VITALS: BP 144/68
[2019-11-01] MEDS: FERROUS SULFATE 325MG TAB PO SCH ×2 (12:46→21:08)
[2019-11-01 15:43] VITALS: BP 166/74
--- NOTE | 2019-11-01 17:47 | IPNPDOC ---
Subjective Date Seen The patient was seen on 11/01/19. Subjective Chief Complaint/HPI He reports that overnight he did have some generalized malaise, and this morning he feels somewhat tired, but he does not have any specific complaint. He denies nausea, vomiting, diarrhea, fever, and the remainder of the review of systems is negative. The drainage from his chest tube seems to have slowed down. His pain seems to be well controlled. Objective Physical Examination General Exam: Positive: Alert, No Acute Distress Neck Exam: Positive: Supple; Negative: JVD Chest Exam: Positive: Rales (at the bases bilaterally), Other (chest tube present in right hemithorax) Heart Exam: Positive: Rate Normal, Regular Rhythm; Negative: Murmurs, Rubs Abdomen Exam: Positive: Normal bowel sounds, Soft; Negative: Tenderness, Hepatospenomegaly Extremity Exam: Positive: Normal pulses; Negative: Clubbing, Cyanosis, Edema Assessment /Plan Problems (1) Hemothorax Status: Acute (2) Fracture, ribs Status: Acute (3) Acute blood loss anemia Status: Acute (4) Leukocytosis Status: Acute Response to Treatment: Improving (5) Hyperlipidemia Status: Chronic Problem Text: Continue home dose of rosuvastatin (6) Seasonal allergies Status: Chronic (7) Hx of wheezing Status: Chronic Response to Treatment: Improving Problem Text: Supposedly secondary to seasonal allergies, he does not have an official diagnosis for asthma Levealbuterol PRN Plan/VTE VTE Prophylaxis Ordered?: Yes (sequentials) Plan It sounds as though cardiothoracic surgery is planning on removing his chest tube today. If he does well through the night, I would anticipate discharge tomorrow. VS, I&O, 24H, [facility] Vital Signs/I&O Vital Signs Date Time Temp Pulse Resp B/P (MAP) Pulse Ox O2 Delivery O2 Flow Rate FiO2 11/01/19 15:43 98.0 102 18 166/74 (104) 92 Nasal Cannula 2.0 I&O- Last 24 Hours up to 6 AM 11/01/19 06:00 Intake Total 120 ml Output Total 1435 ml Balance -1315 ml Laboratory Data 24H LABS Laboratory Tests 2 11/01/19 05:53: Immature Granulocyte % (Auto) 1.0, Neutrophils (%) (Auto) 72.0H, Lymphocytes (%) (Auto) 12.3L, Monocytes (%) (Auto) 10.4H, Eosinophils (%) (Auto) 4.1H, Basophils (%) (Auto) 0.2, Neutrophils # (Auto) 5.9, Lymphocytes # (Auto) 1.0L, Monocytes # (Auto) 0.9H, Eosinophils # (Auto) 0.3, Basophils # (Auto) 0.0, Nucleated Red Blood Cells % (auto) 0.0, Anion Gap 3L, Glomerular Filtration Rate > 60.0, Calcium Level 7.8L CBC/BMP Laboratory Tests 10/31/19 23:18 11/01/19 05:53 Microbiology Microbiology 10/29/19 Respiratory Virus Panel (PCR) ([facility]) - Final, Complete 10/29/19 Acid Fast Stain, Received Pending 10/29/19 Mycobacterial Culture, Received Pending 10/29/19 Fungal Smear, Received Pending 10/29/19 Fungal Culture, Received Pending 10/29/19 Gram Stain - Final, Complete 10/29/19 Body Fluid Culture - Final, Complete 10/29/19 Anaerobic Culture - Final, Complete WALDEMAR SHETH DO Nov 01, 2019 17:47
[2019-11-01 20:00] VITALS: BP 149/70
[2019-11-01] MEDS: LATANOPROST 0.005% OPHTH SOLN 2.5 ML OU SCH (21:08)
[2019-11-02] VITALS (7 sets, daily range): BP systolic 138–157; BP diastolic 64–82
[2019-11-02] MEDS: LEVALBUTEROL 1.25 MG/0.5 ML CONCENTRATE NEB NEB SCH ×4 (01:32→20:00)
[2019-11-02] MEDS: KETOROLAC 30 MG/ML 1ML VIAL IV SCH ×4 (03:38→20:48)
[2019-11-02 06:05] LABS: BASO % 0.1 % (0.0-1.0); EOS # 0.3 10^3/uL (0.0-0.5); EOS % 3.9 % (0.0-3.0); HEMATOCRIT 24.3 % (42.0-52.0); HEMOGLOBIN 7.9 g/dl (13.5-17.5); LYMPH % 13.9 % (24.0-44.0); MEAN CORPUSCULAR HEMOGLOBIN 31.7 pg (27.0-33.0); MEAN CORPUSCULAR HGB CONC 32.5 g/dl (32.0-36.5); MEAN CORPUSCULAR VOLUME 97.6 fl (80.0-96.0); MONO # 0.8 10^3/uL (0.0-0.8); MONO % 11.3 % (0.0-5.0); NEUTROPHILS % 69.3 % (36.0-66.0); PLATELET COUNT, AUTOMATED 130 10^3/uL (150-450); RED BLOOD COUNT 2.49 10^6/uL (4.30-6.10); WHITE BLOOD COUNT 7.3 10^3/uL (4.0-10.0)
[2019-11-02 06:26] LABS: BLOOD UREA NITROGEN 34 MG/DL (7-18); CALCIUM LEVEL 7.4 MG/DL (8.8-10.2); CARBON DIOXIDE LEVEL 26 MEQ/L (21-32); CHLORIDE LEVEL 113 MEQ/L (98-107); CREATININE FOR GFR 0.83 MG/DL (0.70-1.30); GLOMERULAR FILTRATION RATE > 60.0 (>42); GLUCOSE, FASTING 120 MG/DL (70-100); POTASSIUM SERUM 4.3 MEQ/L (3.5-5.1); SODIUM LEVEL 141 MEQ/L (136-145)
--- NOTE | 2019-11-02 09:02 | REP ---
Clinical: Hemothorax. Technique: PA and lateral. Comparison: 11/01/2019. Findings: Previously noted right chest tube has been removed. Right apical pneumothorax is decreased. Moderate presumed hemorrhagic pleural fluid at the right base may be slightly increased from prior examination. Impression: 1. Chest tube removed with decreased right apical pneumothorax. 2. Pleural fluid overlying the right base slightly increased from prior exam. Electronically Signed by Nicolas Wynne MD 11/02/2019 08:53 A
[2019-11-02] MEDS ORDERED: FUROSEMIDE 40MG/4ML VIAL (J1940) IV ONE (10:00)
[2019-11-02] MEDS: PANTOPRAZOLE 40MG TAB (PROTONIX) PO SCH (10:08)
[2019-11-02] MEDS: MOM 30ML SUSPENSION UDC PO SCH (10:09)
[2019-11-02] MEDS: ROSUVASTATIN 10 MG TAB (CRESTOR) PO SCH (10:09)
[2019-11-02] MEDS: DOCUSATE SODIUM 100 MG CAP PO SCH (10:09)
[2019-11-02] MEDS: FERROUS SULFATE 325MG TAB PO SCH ×2 (10:09→20:47)
[2019-11-02] MEDS: SIMETHICONE 80 MG CHEW TAB PO PRN ×2 (10:13→20:47)
--- NOTE | 2019-11-02 10:16 | RO ---
DATE OF PROCEDURE: 10/29/2019 PREPROCEDURE DIAGNOSES: Multiple fractured ribs, hemothorax. POSTPROCEDURE DIAGNOSES: Multiple fractured ribs, hemothorax. PROCEDURE: Insertion of a right posterolateral chest tube. SURGEON: Israel Walls MD WINDOW CASER: ANESTHESIA: DESCRIPTION OF PROCEDURE: Under satisfactory moderate sedation achieved with 4 mg of Versed, the patient was prepped and draped in the usual sterile fashion. Incision site at approximately the 6th intercostal space was infiltrated with 1% lidocaine down to the pleura. Incision was made, and a tunnel was created in the chest. A #24 chest tube was placed. Because of his obesity, placement was a bit more challenging than usual in that the overlying tissue kept collapsing, and trying to find the tract was difficult. Nonetheless, after about five dilations, the chest tube was placed without difficulty. It was secured to the chest wall with #2 Tevdek suture. 1400 mL of what looked to be pure blood was eluded from the chest. This was sent for the requisite chemistries, cytologies, bacteriologies, and hematologies. The patient tolerated the procedure well, and a chest x-ray is pending.
--- NOTE | 2019-11-02 12:44 | IPN ---
DATE OF SERVICE: 11/02/2019 Mr. Adler is feeling fairly well today but still a bit weak. His intake and output (I and O) have not been collected; and, therefore, I do not know what his output has been. Nonetheless, his weight is up. His chest x-ray shows some reaccumulation of fluid; and, therefore, I am going to diurese him. His vital signs show a maximum temperature (Tmax) of 99.1 with a heart rate that ranges between 79 and 102 in a sinus rhythm. He did appear to have one episode of supraventricular tachycardia (SVT) yesterday. Respiratory rate is 18-16 without the use of accessory muscles, and he is 96% to 94% saturated on 2 liters nasal cannula. His blood pressure is ranging between 142/68 to 166/74. His intake and output shows six voids and only 51 mL of urine. He has taken in 1700 mL in by mouth. He weighs 91.7 kg today compared to 90.6 kg yesterday. On physical examination, he still has very coarse rhonchi in the right lower base. Percussion note is full to the diaphragm. Ecchymosis over his right lower inferior chest consistent with his rib fractures. Cardiac examination is without murmurs, clicks, gallops, or rubs. I cannot feel his point of maximal impulse (PMI). S1 and S2 are normal. Abdomen is soft and nontender. Bowel sounds are positive. There is no hepatomegaly, no costovertebral angle (CVA) tenderness. Extremities show no pretibial edema, no calf tenderness, no differential swelling of the upper extremities. Skin is warm, dry, and perfused without cyanosis or mottling, including that of the nail beds and the knees. Neck is supple. There is no jugular venous distention. No subcutaneous emphysema. Trachea is midline. Mouth shows his mucous membranes to be pink and moist. Lips and commissures are without lesions. There is no thrush. Eyes show his pupils to be equal and reactive. Extraocular motions are intact. Sclerae anicteric. Neurologic shows II-XII intact along with gross motor and gross sensation intact. Gait is not tested. Psychiatric shows him to be awake and alert, oriented times three with appropriate mood and affect and conversational. His white count today is 7.3 with a hemoglobin and hematocrit of 7.9 and 24.3 which I suspect is secondary to hemodilution but could be additional blood loss. Platelet count is 130. Differential shows 69% neutrophils, 15% lymphocytes, 11% monocytes. There are no immature forms, no toxic granulations. His electrolytes are essentially normal with a BUN and creatinine of 34 and 0.83, a glucose of 120, and a calcium of 7.4. Pathology is still pending. His chest x-ray as noted in the introduction shows some reaccumulation and blunting of the right costophrenic angle. There is no subcutaneous emphysema, and his lung is fully expanded to the chest wall. IMPRESSION: 1. Multiple rib fractures, right side. 2. Hemothorax. 3. Hyperlipidemia. 4. Glaucoma. 5. Anemia associated with blood loss and hemodilution. PLAN AND DISCUSSION: I removed his chest tube yesterday. I was hoping we could send him home today. However, he has a little bit of blunting of the right costophrenic angle. I am hoping this is secondary to an I and O imbalance. I am, therefore, going to diurese him with 40 mg of Lasix. He still needs a little bit more ambulation and rehabilitation before he goes home to be independent.
--- NOTE | 2019-11-02 13:19 | IPNPDOC ---
Subjective Date Seen The patient was seen on 11/02/19. Subjective Chief Complaint/HPI The patient reports that he is feeling a little more tired today than it was yesterday. He has started to have some loose stools as well. He has not had any fevers, no antibiotics have been administered during this hospitalization, and they are not entirely liquid, just loose stools. Otherwise, his pain appears to be well controlled. He did require some oxygen overnight, however he is saturating well today on room air Constitutional: Denies: Chills, Fever, Night Sweats Pulmonary: Denies: Dyspnea, Cough Gastrointestinal: Reports: Diarrhea; Denies: Nausea, Vomiting, Abdominal Pain, Constipation Objective Physical Examination General Exam: Positive: Alert, No Acute Distress Neck Exam: Positive: Supple; Negative: JVD Chest Exam: Positive: Rales (minimal at the bases), Diminished (diminished at the right base, I feel as though perhaps a small reaccumulation of fluid has occurred since removal of his chest tube), Other Heart Exam: Positive: Rate Normal, Regular Rhythm, Normal S1, Normal S2; Negative: Murmurs, Rubs Abdomen Exam: Positive: Normal bowel sounds, Soft; Negative: Tenderness, Hepatospenomegaly Extremity Exam: Positive: Normal pulses; Negative: Clubbing, Cyanosis, Edema Psych Exam: Positive: Mental status NL, Mood NL, Oriented x 3 Assessment /Plan Problems (1) Hemothorax Status: Acute (2) Fracture, ribs Status: Acute (3) Acute blood loss anemia Status: Acute (4) Leukocytosis Status: Acute Response to Treatment: Improving (5) Hyperlipidemia Status: Chronic Problem Text: Continue home dose of rosuvastatin (6) Seasonal allergies Status: Chronic (7) Hx of wheezing Status: Chronic Response to Treatment: Improving Problem Text: Supposedly secondary to seasonal allergies, he does not have an official diagnosis for asthma Levealbuterol PRN (8) Diarrhea Status: Acute Plan/VTE VTE Prophylaxis Ordered?: Yes (sequentials) Plan H&H did drop slightly last night, the patient still feel a little weak today, he has not fully weaned off of the oxygen yet. I think that it would be prudent to keep in the hospital at least one more night. Regarding his diarrhea, we will stop his Colace (which he has been refusing anyway), and started him on Imodium. Unlikely infectious given lack of fever, white count, has not received antibiotics, and that it is partially formed. VS, I&O, 24H, Fishbone Vital Signs/I&O Vital Signs Date Time Temp Pulse Resp B/P (MAP) Pulse Ox O2 Delivery O2 Flow Rate FiO2 11/02/19 12:00 98.2 86 18 142/72 (95) 92 Nasal Cannula 2.0 I&O- Last 24 Hours up to 6 AM 11/02/19 06:00 Intake Total 2000 ml Output Total 1 ml Balance 1999 ml Laboratory Data 24H LABS Laboratory Tests 2 11/02/19 05:28: Immature Granulocyte % (Auto) 1.5, Neutrophils (%) (Auto) 69.3H, Lymphocytes (%) (Auto) 13.9L, Monocytes (%) (Auto) 11.3H, Eosinophils (%) (Auto) 3.9H, Basophils (%) (Auto) 0.1, Neutrophils # (Auto) 5.0, Lymphocytes # (Auto) 1.0L, Monocytes # (Auto) 0.8, Eosinophils # (Auto) 0.3, Basophils # (Auto) 0.0, Nucleated Red B lood Cells % (auto) 0.0, Anion Gap 2L, Glomerular Filtration Rate > 60.0, Calcium Level 7.4L CBC/BMP Laboratory Tests 11/02/19 05:28 Microbiology Microbiology 10/29/19 Respiratory Virus Panel (PCR) ([facility]) - Final, Complete 10/29/19 Acid Fast Stain, Received Pending 10/29/19 Mycobacterial Culture, Received Pending 10/29/19 Fungal Smear, Received Pending 10/29/19 Fungal Culture, Received Pending 10/29/19 Gram Stain - Final, Complete 10/29/19 Body Fluid Culture - Final, Complete 10/29/19 Anaerobic Culture - Final, Complete WALDEMAR SHETH DO Nov 02, 2019 13:19
[2019-11-02] MEDS: LOPERAMIDE 2 MG CAPLET PO PRN ×2 (14:38→20:47)
[2019-11-02] MEDS: LATANOPROST 0.005% OPHTH SOLN 2.5 ML OU SCH (20:48)
[2019-11-03] MEDS: LEVALBUTEROL 1.25 MG/0.5 ML CONCENTRATE NEB NEB SCH ×3 (02:00→13:39)
[2019-11-03] MEDS: KETOROLAC 30 MG/ML 1ML VIAL IV SCH ×3 (03:00→08:19)
[2019-11-03 04:00] VITALS: BP 148/75
[2019-11-03 05:25] LABS: BASO % 0.3 % (0.0-1.0); EOS # 0.3 10^3/uL (0.0-0.5); EOS % 3.4 % (0.0-3.0); HEMATOCRIT 24.9 % (42.0-52.0); HEMOGLOBIN 8.1 g/dl (13.5-17.5); LYMPH # 1.1 10^3/uL (1.5-5.0); LYMPH % 14.9 % (24.0-44.0); MEAN CORPUSCULAR HEMOGLOBIN 31.6 pg (27.0-33.0); MEAN CORPUSCULAR HGB CONC 32.5 g/dl (32.0-36.5); MEAN CORPUSCULAR VOLUME 97.3 fl (80.0-96.0); MONO # 0.8 10^3/uL (0.0-0.8); MONO % 11.4 % (0.0-5.0); NEUTROPHILS % 68.2 % (36.0-66.0); PLATELET COUNT, AUTOMATED 153 10^3/uL (150-450); RED BLOOD COUNT 2.56 10^6/uL (4.30-6.10); WHITE BLOOD COUNT 7.4 10^3/uL (4.0-10.0)
[2019-11-03 05:44] LABS: BLOOD UREA NITROGEN 34 MG/DL (7-18); CALCIUM LEVEL 7.5 MG/DL (8.8-10.2); CARBON DIOXIDE LEVEL 27 MEQ/L (21-32); CHLORIDE LEVEL 112 MEQ/L (98-107); CREATININE FOR GFR 0.95 MG/DL (0.70-1.30); GLOMERULAR FILTRATION RATE > 60.0 (>42); GLUCOSE, FASTING 119 MG/DL (70-100); POTASSIUM SERUM 4.4 MEQ/L (3.5-5.1); SODIUM LEVEL 145 MEQ/L (136-145)
[2019-11-03] MEDS: SIMETHICONE 80 MG CHEW TAB PO PRN (06:06)
[2019-11-03 08:00] VITALS: BP 140/80
[2019-11-03] MEDS: FERROUS SULFATE 325MG TAB PO SCH (08:17)
[2019-11-03] MEDS: LOPERAMIDE 2 MG CAPLET PO PRN (08:18)
[2019-11-03] MEDS: MOM 30ML SUSPENSION UDC PO SCH (08:18)
[2019-11-03] MEDS: PANTOPRAZOLE 40MG TAB (PROTONIX) PO SCH (08:18)
--- NOTE | 2019-11-03 10:19 | REP ---
REASON: Followup. COMPARISON: Multiple, the latest 11/02/2019. Right-sided hydropneumothorax status quo with only a minimal pneumo component. No new abnormal opacities have developed. No change in the cardiomediastinal silhouette. No change in the osseous structures. IMPRESSION: No change. Electronically Signed by Suresh Cosby DO 11/03/2019 01:22 P
[2019-11-03 12:00] VITALS: BP 144/73
[2019-11-03] MEDS ORDERED: ACET1TAB55 PO (14:33)
[2019-11-03] MEDS ORDERED: FERR325T18 PO (14:33)
== END 2019-11-03 15:54 | disposition home health service (06) | DRG 200 ==
LOC: M ED 10:48 → M PCU 14:28 → ENRESERV 14:49
PROVIDERS: ADMIT Thoracic Surgery (Cardiothoracic Vascular Surgery); ATTEND Neuromusculoskeletal Medicine & OMM
PROC: 0W9930Z Drainage of Right Pleural Cavity with Drainage Device, Percutaneous Approach (ICD-10-PCS; 2019-10-29)
PROC: 0W9930Z Drainage of Right Pleural Cavity with Drainage Device, Percutaneous Approach (ICD-10-PCS; principal; 2019-10-30)
DX: S27.1XXA Traumatic hemothorax, initial encounter (principal); D62 Acute posthemorrhagic anemia; S22.41XA Multiple fractures of ribs, right side, initial encounter for closed fracture; Z79.82 Long term (current) use of aspirin; Z79.899 Other long term (current) drug therapy; Z88.5 Allergy status to narcotic agent; W10.9XXA Fall (on) (from) unspecified stairs and steps, initial encounter; Y92.009 Unspecified place in unspecified non-institutional (private) residence as the place of occurrence of the external cause; H40.9 Unspecified glaucoma; E78.5 Hyperlipidemia, unspecified; D72.829 Elevated white blood cell count, unspecified

== ENCOUNTER → 2019-10-29 | Outpatient (CLI) | payer MEDICARE ==
--- NOTE | 2019-10-29 10:32 | REP ---
Clinical: Contusion with rib fractures. Technique: PA and lateral. Comparison: 10/27/2019. Findings: Current examination now demonstrates a moderate hydropneumothorax with right lower lobe consolidation / opacity. Known right rib fractures again identified. Impression: Moderate right hydropneumothorax and right lower lobe opacities have developed. Electronically Signed by Nicolas Wynne MD 10/29/2019 10:24 A
--- NOTE | 2019-10-29 10:34 | REP ---
Clinical: Generalized abdominal pain. Technique: Supine and upright views of the abdomen and pelvis. Findings: Right rib fractures with right lower lobe consolidation and effusion are suggested on abdominal radiograph. The bowel gas pattern demonstrates dilated loops of bowel and fecal stasis suggesting the possibility of constipation and ileus. Early obstruction cannot definitively be excluded. Impression: 1. Known right rib fractures with right basilar atelectasis and small effusion. 2. Constipation and possible ileus. Less likely early small bowel obstruction cannot be excluded. Electronically Signed by Nicolas Wynne MD 10/29/2019 10:26 A
== END ==
LOC: M ADAMS 10:01
PROVIDERS: ATTEND Nurse Practitioner Family
DX: J94.8 Other specified pleural conditions (principal); R91.8 Other nonspecific abnormal finding of lung field; S20.221D Contusion of right back wall of thorax, subsequent encounter; S22.41XD Multiple fractures of ribs, right side, subsequent encounter for fracture with routine healing; R10.84 Generalized abdominal pain

== ENCOUNTER → 2019-11-10 | Outpatient (CLI) | payer MEDICARE ==
[~2019-11-10] MED LIST changes: +D31000TA2 PO; -VITAD1000T PO
--- NOTE | 2019-11-10 11:20 | REPPI ---
REASON: Followup hemothorax. The latest prior for comparison 11/03/2019. Right pleural effusion is unchanged. There are no new abnormal opacities. The cardiomediastinal silhouette and left lung are stable. The osseous structures are unchanged. IMPRESSION: No significant change. Electronically Signed by Suresh Cosby DO 11/10/2019 02:26 P
[2019-11-10 14:35] LABS: HEMOGLOBIN 9.7 g/dl (13.5-17.5); MEAN CORPUSCULAR HGB CONC 31.3 g/dl (32.0-36.5); PLATELET COUNT, AUTOMATED 342 10^3/uL (150-450); RED BLOOD COUNT 3.13 10^6/uL (4.30-6.10); WHITE BLOOD COUNT 10.1 10^3/uL (4.0-10.0)
== END ==
LOC: M PLAIMG 08:53
PROVIDERS: ATTEND Thoracic Surgery (Cardiothoracic Vascular Surgery)
DX: J94.2 Hemothorax (principal); S22.41XS Multiple fractures of ribs, right side, sequela; X58.XXXS Exposure to other specified factors, sequela; Y92.9 Unspecified place or not applicable; Y93.9 Activity, unspecified; Y99.9 Unspecified external cause status

== ENCOUNTER → 2019-11-14 | Outpatient (CLI) | payer MEDICARE ==
--- NOTE | 2019-11-14 13:10 | REP ---
CHEST, TWO VIEWS: Two views of the are performed status post right thoracentesis. There is no pneumothorax. There is decreased amount of pleural fluid compared to the prior study of 11/10/2019. There is mild residual. Left lung is clear. Heart and mediastinum are unchanged. Electronically Signed by Sourav Aparicio MD 11/17/2019 09:39 A
[2019-11-14 14:16] VITALS: BP 113/62
--- NOTE | 2019-11-17 10:10 | REP ---
Ultrasound-guided thoracentesis The procedure was performed by MAUREEN Childers, under the direct supervision of Dr. Aparicio. The risks and benefits of the procedure were explained to the patient and informed consent was obtained both verbally and written. Directly prior to the start of the procedure, a formal timeout was completed in the exam room. Pleural fluid on the right lung zone was localized using ultrasound guidance. The skin was prepped and draped in a sterile fashion. 5 ml of 1% lidocaine 10 mg/ml was used as a local anesthetic. Using ultrasound guidance, an 8-American multi side-hole catheter was inserted and advanced into the fluid. 1,190 ml of dark red colored fluid was withdrawn and sent to the lab for analysis. The patient tolerated the procedure well and there were no immediate complications. After the appropriate amount of monitored convalescence, the patient was discharged from the department. Reviewed by MAUREEN Calvo 11/14/2019 03:10 P Electronically Signed by Sourav Aparicio MD 11/17/2019 10:01 A
== END ==
LOC: M IRPRO 11:08
PROVIDERS: ATTEND Thoracic Surgery (Cardiothoracic Vascular Surgery)
DX: J94.2 Hemothorax (principal); J90 Pleural effusion, not elsewhere classified

== ENCOUNTER → 2019-11-17 | Outpatient (CLI) | payer MEDICARE ==
--- NOTE | 2019-11-17 11:18 | REPPI ---
Clinical: Hemothorax. Rib fractures. Technique: PA and lateral. Comparison: 11/10/2019. Findings: Multiple right rib fractures and right basilar opacities consistent with the given history of hemothorax is again noted and may be minimally improved from prior examination. No new acute process identified. Impression: 1. Right rib fractures again noted. 2. Right basilar opacity consistent with the given history of pneumothorax may be minimally improved. 3. No new acute process identified. Electronically Signed by Nicolas Wynne MD 11/17/2019 11:10 A
== END ==
LOC: M PLAIMG 10:19
PROVIDERS: ATTEND Thoracic Surgery (Cardiothoracic Vascular Surgery)
DX: J94.2 Hemothorax (principal); S22.41XD Multiple fractures of ribs, right side, subsequent encounter for fracture with routine healing; X58.XXXD Exposure to other specified factors, subsequent encounter

== ENCOUNTER → 2020-10-28 | Outpatient (CLI) | payer MEDICARE ==
[2020-10-28 18:10] LABS: BASO # 0.1 10^3/uL (0.0-0.2); BASO % 0.5 % (0.0-1.0); EOS # 0.2 10^3/uL (0.0-0.5); EOS % 1.7 % (0.0-3.0); HEMATOCRIT 45.1 % (42.0-52.0); HEMOGLOBIN 14.7 g/dl (13.5-17.5); LYMPH # 1.4 10^3/uL (1.5-5.0); LYMPH % 13.1 % (24.0-44.0); MEAN CORPUSCULAR HEMOGLOBIN 30.9 pg (27.0-33.0); MEAN CORPUSCULAR HGB CONC 32.6 g/dl (32.0-36.5); MEAN CORPUSCULAR VOLUME 94.9 fl (80.0-96.0); MONO % 9.8 % (2.0-8.0); NEUTROPHILS # 7.8 10^3/uL (1.5-8.5); NEUTROPHILS % 74.4 % (36.0-66.0); PLATELET COUNT, AUTOMATED 239 10^3/uL (150-450); RED BLOOD COUNT 4.75 10^6/uL (4.30-6.10); WHITE BLOOD COUNT 10.5 10^3/uL (4.0-10.0)
[2020-10-28 18:40] LABS: ALBUMIN 3.7 GM/DL (3.2-5.2); ALT/SGPT 21 U/L (12-78); BILIRUBIN,TOTAL 0.6 MG/DL (0.2-1.0); BLOOD UREA NITROGEN 33 MG/DL (7-18); CALCIUM LEVEL 10.8 MG/DL (8.8-10.2); CARBON DIOXIDE LEVEL 30 MEQ/L (21-32); CHLORIDE LEVEL 101 MEQ/L (98-107); CREATININE FOR GFR 1.21 MG/DL (0.70-1.30); GLOMERULAR FILTRATION RATE > 60.0 (>42); GLUCOSE, FASTING 103 MG/DL (70-100); LIPASE 140 U/L (73-393); POTASSIUM SERUM 4.3 MEQ/L (3.5-5.1); SODIUM LEVEL 139 MEQ/L (136-145); TOTAL PROTEIN 7.5 GM/DL (6.4-8.2)
[2020-10-29 10:37] LABS: H PYLORI QUALITATIVE IgG NEGATIVE (NEGATIVE)
== END ==
LOC: M LAB 17:13
PROVIDERS: ATTEND Physician Assistant
DX: R10.13 Epigastric pain (principal)

== ENCOUNTER → 2020-10-28 | Outpatient (REF) | payer MEDICARE | LOC: M LAB REF 19:33 | PROVIDERS: ATTEND Physician Assistant | DX: R10.13 Epigastric pain (principal) ==

== ENCOUNTER → 2020-12-27 | Outpatient (REF) | payer MEDICARE | LOC: M SFHCPLAZ 16:42 | PROVIDERS: ATTEND Physician Assistant | DX: R10.9 Unspecified abdominal pain (principal) ==

== ENCOUNTER → 2020-12-28 | Outpatient (CLI) | payer MEDICARE ==
--- NOTE | 2020-12-28 13:51 | REP ---
INDICATION: FLANK PAIN. COMPARISON: CT 10/29/2019. TECHNIQUE: Real-time sonographic evaluation of the kidneys is performed. FINDINGS: Renal cortical echogenicity pattern is normal bilaterally and contours are smooth. There is no definite hydronephrosis bilaterally. There are cystic structures in the renal pelvis bilaterally as seen on prior CT scan most consistent with bilateral parapelvic cysts. No definite renal calculus is seen. With duplex Doppler evaluation resistive index is 0.62 bilaterally. The right kidney measures 11.0 x 6.4 x 5.7 cm. Left renal dimensions are 12.1 x 5.0 x 6.0 cm. The urinary bladder is unremarkable. Ureteral jets could not be seen in the urinary bladder with Doppler color evaluation. The prostate measures 3.6 x 3.4 x 4.2 cm, total volume 27 cc. IMPRESSION: Bilateral parapelvic cysts without definite hydronephrosis. If there is continued clinical concern for urinary tract obstruction, CT exam is recommended. <Electronically signed by Sourav Aparicio > 12/28/20 [id number]
== END ==
LOC: M RAD 12:46
PROVIDERS: ATTEND Physician Assistant
DX: R10.9 Unspecified abdominal pain (principal); N28.1 Cyst of kidney, acquired